=== PATIENT | female | born 1970 | race Caucasian/White ===

== ENCOUNTER 2018-08-22 13:31 | Emergency (ER) | payer SELFPAY ==
--- NOTE | 2018-08-22 13:54 | PDOC ---
Rapid Medical Evaluation Time Seen by Provider: 08/22/18 13:49 Medical Evaluation: 08/22/18 13:54 I have performed a brief in-person evaluation of this patient. The patient presents with a chief complaint of: n/v/d and subj fever since last night. Son w/ similar sxs Pertinent physical exam findings:stable w/ benign abd I have ordered the following:nothing The patient will proceed to the ED for further evaluation. Discharge Disposition - Diagnosis Diarrhea Qualifiers: Diarrhea type: unspecified type Qualified Code(s): R19.7 - Diarrhea, unspecified - Referrals - Patient Instructions - Post Discharge Activity
[2018-08-22 13:59] VITALS: BP 126/59; PULSE 81; TEMP 98.2; BMI 29.2
--- NOTE | 2018-08-22 14:20 | PDOC ---
History of Present Illness - General Chief Complaint: Vomiting/Diarrhea Stated Complaint: VOMITING/DIARRHEA Time Seen by Provider: 08/22/18 13:49 History Source: Patient Exam Limitations: No Limitations - History of Present Illness Initial Comments: 08/22/18 15:35 Patient is a 47-year-old female no past medical history who presents to the emergency department today with one half days of nausea and diarrhea. Patient states she's had 3 diarrheal movements today. She states she's been unable to eat due to her nausea. She states that her son has similar symptoms. Denies fevers, chills, vomiting, abdominal pain, weakness, lightheadedness, frequency, urgency and hematuria, shortness of breath and chest pain. Past History - Travel Traveled outside of the country in the last 30 days: No Close contact w/someone who was outside of country & ill: No - Past Medical History Allergies/Adverse Reactions: Allergies Allergy/AdvReac Type Severity Reaction Status Date / Time No Known Allergies Allergy Verified 08/22/18 13:54 Home Medications: Ambulatory Orders Ondansetron [Zofran Odt -] 4 mg SL TID #21 od.tablet 08/22/18 COPD: No Other medical history: DENIES. - Suicide/Smoking/Psychosocial Hx Smoking History: Never smoked Review of Systems - Review of Systems Able to Perform ROS?: Yes Comments:: 08/22/18 18:35 CONSTITUTIONAL: Absent: fever, chills, diaphoresis, generalized weakness, malaise, loss of appetite HEENT: Absent: rhinorrhea, nasal congestion, throat pain, throat swelling, difficulty swallowing, mouth swelling, ear pain, eye pain, visual Changes CARDIOVASCULAR: Absent: chest pain, loss of consciousness, palpitations, irregular heart rate, peripheral edema RESPIRATORY: Absent: cough, shortness of breath, dyspnea with exertion, orthopnea, wheezing, stridor, hemoptysis GASTROINTESTINAL: Present: diarrhea, nausea Absent: abdominal pain, abdominal distension, vomiting , constipation, melena, hematochezia GENITOURINARY: Absent: dysuria, frequency, urgency, hesitancy, hematuria, flank pain, genital pain MUSCULOSKELETAL: Absent: myalgia, arthralgia, joint swelling SKIN: Absent: rash, itching, pallor HEMATOLOGIC/IMMUNOLOGIC: Absent: easy bleeding, easy bruising, lymphadenopathy, frequent infections ENDOCRINE: Absent: unexplained weight gain, unexplained weight loss, heat intolerance, cold intolerance NEUROLOGIC: Absent: headache, focal weakness or paresthesias, dizziness, unsteady gait, seizure, mental status changes, bladder or bowel incontinence PSYCHIATRIC: Absent: anxiety, depression, suicidal or homicidal ideation, hallucinations. Is the patient limited Mozambican proficient: No *Physical Exam - Vital Signs Last Vital Signs Temp Pulse Resp BP Pulse Ox 98.2 F 81 19 126/59 L 98 08/22/18 13:54 08/22/18 13:54 08/22/18 13:54 08/22/18 13:54 08/22/18 13:54 - Physical Exam Comments: 08/22/18 15:35 GENERAL: Well developed, well nourished. Awake and alert. No acute distress. HEENT: Normocephalic, atraumatic. PERRLA, EOMI. No conjunctival pallor. Sclera are non- icteric. Moist mucous membranes. Oropharynx is clear. NECK: Supple. Full ROM. No JVD. Carotid pulses 2+ and symmetric, without bruits. No thyromegaly. No lymphadenopathy. CARDIOVASCULAR: Regular rate and rhythm. No murmurs, rubs, or gallops. Distal pulses are 2+ and symmetric. PULMONARY: No evidence of respiratory distress. Lungs clear to auscultation bilaterally. No wheezing, rales or rhonchi. ABDOMINAL: Soft. Non-tender. Non-distended. No rebound or guarding. No organomegaly. Normoactive bowel sounds. MUSCULOSKELETAL Normal range of motion at all joints. No bony deformities or tenderness. No CVA tenderness. EXTREMITIES: No cyanosis. No clubbing. No edema. No calf tenderness. SKIN: Warm and dry. Normal capillary refill. No rashes. No jaundice. NEUROLOGICAL: Alert, awake, appropriate. Cranial nerves 2-12 intact. No deficits to light touch and temperature in face, upper extremities and lower extremities. No motor deficits in the in face, upper extremities and lower extremities. Normoreflexic in the upper and lower extremities. Normal speech. Toes are down- going bilaterally. Gait is normal without ataxia. PSYCHIATRIC: Cooperative. Good eye contact. Appropriate mood and affect. Moderate Sedation - Procedure Monitoring Vital Signs: Procedure Monitoring Vital Signs Temperature 98.2 F 08/22/18 13:54 Pulse Rate 81 08/22/18 13:54 Respiratory Rate 19 08/22/18 13:54 Blood Pressure 126/59 L 08/22/18 13:54 O2 Sat by Pulse Oximetry (%) 98 08/22/18 13:54 ED Treatment Course - LABORATORY CBC & Chemistry Diagram: 08/22/18 14:47 08/22/18 14:47 Medical Decision Making - Medical Decision Making 08/22/18 18:36 Patient is a 47-year-old female who presents to the emergency department with 2 days of nausea and diarrhea. Son with similar symptoms at home. Benign abdominal exam. Basic labs ordered. No leukocytosis, which was within normal limits. Urine shows 2+ leukocytes at this time. Patient has no abdominal tenderness and no urinary complaints. We'll defer antibiotic treatment at this time. Zofran given with relief of symptoms. Discharge home I discussed the physical exam findings, ancillary test results and final diagnoses with the patient. I answered all of the patient's questions. The patient was satisfied with the care received and felt comfortable with the discharge plan and treatment plan. The Patient agrees to follow up with the primary care physician/specialist within 24-72 hours. Return precautions were given. *DC/Admit/Observation/Transfer Diagnosis at time of Disposition: Gastroenteritis Diarrhea Qualifiers: Diarrhea type: unspecified type Qualified Code(s): R19.7 - Diarrhea, unspecified - Discharge Dispostion Disposition: HOME Condition at time of disposition: Stable Decision to Admit order: No - Prescriptions Prescriptions: Ondansetron [Zofran Odt -] 4 mg SL TID #21 od.tablet - Referrals Referrals: Raven Keane MD [Primary Care Provider] - - Patient Instructions Printed Discharge Instructions: DI for Viral Gastroenteritis -- Adult Additional Instructions: You have nausea, vomiting and diarrhea. You may take zofran 4mg every 8 hours as needed for nausea. Avoid all dairy products until 48 hours after the vomiting/diarrhea has resolved. Eat a bland diet including apple sauce, toast, bananas, and plain rice Drink plenty of fluids including pedialyte, watered down juices and water Follow up with your primary care doctor this week Return to the ED if you develop fevers, abdominal pain, worsening vomiting, or if you have any changes in your symptoms. Tienes nuseas, vmitos y diarrea. Puede [place] zofran 4 mg cada 8 horas segn sea necesario para las nuseas. Evite todos los productos lcteos hasta 48 horas despus de que se hayan resuelto los vmitos / diarrea. Coma parris dieta blanda que incluya salsa de manzana, tostadas, pltanos y arroz. Faviola muchos lquidos incluyendo pedialyte, jugos diluidos y agua. Adilene un seguimiento con farah mdico de atencin primaria esta semana. Regrese a la keenan de urgencias si presenta fiebre, dolor abdominal, empeoramiento de los vmitos o si tiene algn cambio en carlos sntomas. Print Language: ARABIC - Post Discharge Activity
[2018-08-22] MEDS ORDERED: ONDANSETRON *ODT* 4 MG TABLET SL ONE (14:27)
[2018-08-22] MEDS ORDERED: ONDANSETRON *ODT* 4 MG TABLET ONE (14:41)
--- NOTE | 2018-08-22 15:06 | PDOC ---
*Physical Exam - Vital Signs Last Vital Signs Temp Pulse Resp BP Pulse Ox 98.2 F 81 19 126/59 L 98 08/22/18 13:54 08/22/18 13:54 08/22/18 13:54 08/22/18 13:54 08/22/18 13:54 ED Treatment Course - LABORATORY CBC & Chemistry Diagram: 08/22/18 14:47 08/22/18 14:47 - Medications Given in the ED: ED Medications Discontinued Medications Generic Name Dose Route Start Last Admin Trade Name Frerenny PRN Reason Stop Dose Admin Ondansetron HCl 4 mg 08/22/18 14:27 08/22/18 14:50 Zofran Odt - SL 08/22/18 14:28 4 mg ONCE ONE Administration Medical Decision Making - Medical Decision Making 08/22/18 15:06 Pt seen by Midlevel Provider under my direct supervision Ancillary studies reviewed I agree with plan as outlined by Midlevel Provider 08/23/18 11:41 *DC/Admit/Observation/Transfer Diagnosis at time of Disposition: Gastroenteritis Diarrhea Qualifiers: Diarrhea type: unspecified type Qualified Code(s): R19.7 - Diarrhea, unspecified - Discharge Dispostion Disposition: HOME Condition at time of disposition: Stable - Prescriptions Prescriptions: Ondansetron [Zofran Odt -] 4 mg SL TID #21 od.tablet - Referrals Referrals: Raven Keane MD [Primary Care Provider] - - Patient Instructions Printed Discharge Instructions: DI for Viral Gastroenteritis -- Adult Additional Instructions: You have nausea, vomiting and diarrhea. You may take zofran 4mg every 8 hours as needed for nausea. Avoid all dairy products until 48 hours after the vomiting/diarrhea has resolved. Eat a bland diet including apple sauce, toast, bananas, and plain rice Drink plenty of fluids including pedialyte, watered down juices and water Follow up with your primary care doctor this week Return to the ED if you develop fevers, abdominal pain, worsening vomiting, or if you have any changes in your symptoms. Tienes nuseas, vmitos y diarrea. Puede [place] zofran 4 mg cada 8 horas segn sea necesario para las nuseas. Evite todos los productos lcteos hasta 48 horas despus de que se hayan resuelto los vmitos / diarrea. Coma parris dieta blanda que incluya salsa de manzana, tostadas, pltanos y arroz. Faviola muchos lquidos incluyendo pedialyte, jugos diluidos y agua. Adilene un seguimiento con farah mdico de atencin primaria esta semana. Regrese a la keenan de urgencias si presenta fiebre, dolor abdominal, empeoramiento de los vmitos o si tiene algn cambio en carlos sntomas. Print Language: PALESTINIAN - Post Discharge Activity
[2018-08-22 15:34] LABS: BASO % 0.9 % (0-2.0); HEMATOCRIT 33.2 % (32.4-45.2); HEMOGLOBIN 10.3 GM/dL (10.7-15.3); LYMPH % 36.1 % (8-40); MCH 24.9 pg (25.7-33.7); MEAN CELL VOLUME 80.5 fl (80-96); MEAN PLT VOLUME 8.9 fl (7.5-11.1); MONO % 11.3 % (3.8-10.2); NEUT % 45.7 % (42.8-82.8); PLATELET COUNT 283 K/MM3 (134-434); RBC 4.12 M/mm3 (3.60-5.2); RDW 15.8 % (11.6-15.6); WHITE BLOOD COUNT 4.1 K/mm3 (4.0-10.0)
[2018-08-22 15:46] LABS: URINE APPEARANCE SLCLOUDY; URINE BILIRUBIN NEGATIVE (<2.0 mg/dL); URINE COLOR DKYELLOW; URINE GLUCOSE (UA) NEGATIVE (NEGATIVE); URINE KETONE NEGATIVE (NEGATIVE); URINE LEUK ESTERASE 2+ (NEGATIVE); URINE NITRITE NEGATIVE (NEGATIVE); URINE PROTEIN 1+ (NEGATIVE)
[2018-08-22 15:58] LABS: ALBUMIN 3.7 g/dl (3.4-5.0); ALK PHOS 158 U/L (45-117); ANION GAP 6 MMOL/L (8-16); BILIRUBIN,TOTAL 0.4 mg/dL (0.2-1); BLOOD UREA NITROGEN 12 mg/dL (7-18); CALCIUM 8.3 mg/dL (8.5-10.1); CHLORIDE 107 mmol/L (98-107); CO2 26 mmol/L (21-32); CREATININE 0.5 mg/dL (0.55-1.3); GLUCOSE,RANDOM 107 mg/dL (74-106); POTASSIUM 3.7 mmol/L (3.5-5.1); SGOT/AST 40 U/L (15-37); SGPT/ALT 63 U/L (13-61); SODIUM 139 mmol/L (136-145); TOT PROT 7.5 g/dl (6.4-8.2)
[2018-08-22 16:50] LABS: EPI CELLS MODERATE /HPF (FEW); URINE MUCUS FEW
== END 2018-08-22 17:49 | disposition home or self-care (01) ==
LOC: JER 13:31
DX: K52.9 Noninfective gastroenteritis and colitis, unspecified (principal)
CPT/HCPCS: 36415; 80053; 81003; 81015; 85025; 87086; 99281-25; Q0162

== ENCOUNTER 2019-02-04 21:40 | Emergency (ER) | payer SELFPAY ==
[2019-02-04 22:13] VITALS: TEMP 98.6; BMI 25.9
--- NOTE | 2019-02-05 00:48 | PDOC ---
History of Present Illness - General Chief Complaint: Cold Symptoms Stated Complaint: FEVER SORE THROAT - History of Present Illness Initial Comments: The pt is a 48F w/ no reported PMH who presents for evaluation of 2 days of subjective fevers, sore throat, and 1 day of b/l eye redness and right ear pain. She endorses 1 day of productive cough. Endorses odynophagia. She denies sick contacts, has tried taking Ibuprofen for her symptoms with minimal relief, and denies N/V/C/D. 02/05/19 01:02 Past History - Past Medical History Allergies/Adverse Reactions: Allergies Allergy/AdvReac Type Severity Reaction Status Date / Time No Known Allergies Allergy Verified 02/04/19 22:13 Home Medications: Ambulatory Orders Ondansetron [Zofran Odt -] 4 mg SL TID #21 od.tablet 08/22/18 COPD: No - Suicide/Smoking/Psychosocial Hx Smoking History: Never smoked Have you smoked in the past 12 months: No Information on smoking cessation initiated: No Hx Alcohol Use: No Drug/Substance Use Hx: No Review of Systems - Review of Systems Able to Perform ROS?: Yes Comments:: GENERAL/CONSTITUTIONAL: No chills. No weakness HEAD, EYES, EARS, NOSE AND THROAT: +sore throat, and b/l eye redness; No change in vision CARDIOVASCULAR: No chest pain or shortness of breath RESPIRATORY: Denies hemoptysis GASTROINTESTINAL: No nausea, vomiting, diarrhea or constipation GENITOURINARY: No dysuria, frequency, or change in urination MUSCULOSKELETAL: No joint or muscle swelling or pain. No neck or back pain SKIN: No rash NEUROLOGIC: No headache, vertigo, loss of consciousness, or change in strength/ sensation ENDOCRINE: No increased thirst. No abnormal weight change HEMATOLOGIC/LYMPHATIC: No anemia, easy bleeding, or history of blood clots ALLERGIC/IMMUNOLOGIC: No hives or skin allergy 02/05/19 00:47 Is the patient limited Nauruan proficient: No *Physical Exam - Vital Signs Last Vital Signs Temp Pulse Resp BP Pulse Ox 98.6 F 67 18 123/67 100 02/04/19 22:10 02/04/19 22:10 02/04/19 22:10 02/04/19 22:10 02/04/19 22:10 - Physical Exam Comments: GENERAL: Awake, alert, and oriented to person/place/time, in no acute distress HEAD: No signs of trauma, normocephalic, atraumatic EYES: PERRLA, EOMI, b/l conjuctivitis ENT: Hearing grossly normal, nares patent, oropharynx clear without exudates. No uvular deviation. Moist mucosa. TMs normal b/l LUNGS: No distress, speaks full sentences, clear to auscultation bilaterally HEART: Regular rate and rhythm, normal S1 and S2, no murmurs appreciated, peripheral pulses normal and equal bilaterally ABDOMEN: Soft, nontender, normoactive bowel sounds. No guarding, no rebound EXTREMITIES: Normal inspection, Normal range of motion, no edema. No clubbing or cyanosis NEUROLOGICAL: Cranial nerves II through XII grossly intact. Normal speech, no focal sensorimotor deficits SKIN: Warm, Dry 02/05/19 00:47 ED Treatment Course - LABORATORY CBC & Chemistry Diagram: 02/05/19 01:13 02/05/19 01:13 Medical Decision Making - Medical Decision Making The pt is a 48F w/ no reported PMH who presents for evaluation of 2 days of cough, sore throat and 1 day of b/l conjuctivitis Ddx: viral syndrome, less likely PNA, OM ED Course CMP, CBC, Serum Preg CXR Tylenol 975mg PO once 02/05/19 01:16 CXR w/o evidence of PNA Lytes wnl No REID LFTs unremarkable Rapid strep neg Serum preg neg Symptoms likely 2/2 viral syndrome Plan for D/C w/ PCP f/u Discharge instructions and return precautions given Pt in agreement and verbalized understanding Dispo: home 02/05/19 02:37 *DC/Admit/Observation/Transfer Diagnosis at time of Disposition: Viral syndrome - Discharge Dispostion Disposition: HOME Condition at time of disposition: Stable Decision to Admit order: No - Referrals Referrals: Raven Keane MD [Primary Care Provider] - - Patient Instructions Printed Discharge Instructions: DI for Viral Syndrome Additional Instructions: You were seen in the Emergency Department for evaluation of cough, sore throat, and eye redness. Your labs and imaging were unremarkable. Your strep was negative. Review the handout provided at discharge. Return to the Emergency Department if you develop fevers despite Tylenol, chest pain, trouble breathing , worsening symptoms, or any new/concerning symptoms. Se lo lauren en el Departamento de Emergencias para evaluar la tos, el dolor de garganta y el enrojecimiento de los ojos. Nuvia laboratorios y las imgenes no tuvieron nada especial. Tu estreptococo fue negativo. Revise el folleto provisto al momento del claribel. Regrese al Departamento de Emergencias si desarrolla fiebre a pesar del Tylenol, dolor en el pecho, dificultad para respirar, empeoramiento de los sntomas o cualquier sntoma nuevo o relacionado. Print Language: PANAMANIAN - Post Discharge Activity
[2019-02-05] MEDS ORDERED: ACETAMINOPHEN 325 MG TABLET (FP) PO ONE (00:59)
[2019-02-05] MEDS ORDERED: guaiFENesin 200 MG/10 ML 10 ML UNIT-DOSE CUPS PO ONE (01:06)
[2019-02-05] MEDS ORDERED: guaiFENesin 200 MG/10 ML 10 ML UNIT-DOSE CUPS ONE (01:35)
[2019-02-05] MEDS ORDERED: ACETAMINOPHEN 325 MG TABLET (FP) ONE (01:36)
[2019-02-05 01:53] LABS: ALBUMIN 3.6 g/dl (3.4-5.0); BILIRUBIN,TOTAL 0.2 mg/dL (0.2-1); BLOOD UREA NITROGEN 13.8 mg/dL (7-18); CALCIUM 8.6 mg/dL (8.5-10.1); CREATININE 0.6 mg/dL (0.55-1.3); POTASSIUM 3.6 mmol/L (3.5-5.1); TOT PROT 7.4 g/dl (6.4-8.2)
[2019-02-05 02:18] LABS: BASO % 1.1 % (0-2.0); EOS % 6.9 % (0-4.5); HEMATOCRIT 33.7 % (32.4-45.2); HEMOGLOBIN 11.3 GM/dL (10.7-15.3); LYMPH % 39.5 % (8-40); MCH 28.5 pg (25.7-33.7); MCHC 33.4 g/dl (32.0-36.0); MEAN CELL VOLUME 85.4 fl (80-96); MEAN PLT VOLUME 9.1 fl (7.5-11.1); MONO % 10.4 % (3.8-10.2); NEUT % 42.1 % (42.8-82.8); PLATELET COUNT 277 K/MM3 (134-434); RBC 3.95 M/mm3 (3.60-5.2); RDW 17.3 % (11.6-15.6); WHITE BLOOD COUNT 6.3 K/mm3 (4.0-10.0)
[2019-02-05 04:21] VITALS: BP 119/73; PULSE 69
--- NOTE | 2019-02-05 04:21 | PDOC ---
Attending Attestation - Resident Resident Name: Chu Mcqueen - ED Attending Attestation I have performed the following: I have examined & evaluated the patient, The case was reviewed & discussed with the resident, I agree w/resident's findings & plan - HPI HPI: 02/05/19 04:05 48-year-old female with sore throat irritation and body aches - Physicial Exam PE: 02/05/19 04:06 agree with resident exam - Medical Decision Making 02/05/19 04:06 48 yo female with sore throat, body aches cough CXR wnl rapid strep negative Exam consistent with ALLERGIES versus viral syndrome Will DC with anti-histamine and mast cell stabilizer ophthalmic drops for symptomatic treatment
== END 2019-02-05 04:20 | disposition home or self-care (01) ==
LOC: JER 21:40
DX: B34.9 Viral infection, unspecified (principal)
CPT/HCPCS: 36415; 71046-TC-FY; 80053; 84703; 85025; 87070; 87880; 99281-25

== ENCOUNTER 2019-09-04 10:41 | Emergency (ER) | payer OTHER ==
[2019-09-04 10:51] VITALS: BP 140/90; PULSE 100; TEMP 98.1; BMI 24.7
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
== END 2019-09-04 13:01 | disposition home or self-care (01) ==
LOC: JERFT 10:41
DX: S93.492A Sprain of other ligament of left ankle, initial encounter (principal); S80.12XA Contusion of left lower leg, initial encounter; X58.XXXA Exposure to other specified factors, initial encounter; Y93.89 Activity, other specified; Y92.89 Other specified places as the place of occurrence of the external cause
CPT/HCPCS: 73590-TC-LT-FY; 73610-TC-LT-FY; 73630-TC-LT; 99282-25